=== PATIENT | female | born 2000 ===

== ENCOUNTER → 2023-06-21 11:00 | Outpatient (REF) | payer OTHER, SELFPAY ==
[2023-06-21 16:12] LABS: Mumps Virus IgG Positive; Rubeola (Measles) IgG Positive; Varicella Zoster IgG (VZV) Positive
[2023-06-21 19:41] LABS: Rubella Low Positive
[2023-06-21 21:17] LABS: Hepatitis B Surface Antibody Negative
[2023-06-23 07:55] LABS: Quantiferon Mitogen minus NIL 7.58 IU/mL; Quantiferon NIL 0.04 IU/mL; Quantiferon Plus TB2 minus NIL 0.01 IU/mL (0.00-0.34); Quantiferon TB Gold Plus Negative (Negative)
== END ==
LOC: OHS 11:00
PROVIDERS: ATTENDING PHYSICIAN Nurse Practitioner Family
DX: Z23 Encounter for immunization (principal)
CPT/HCPCS: 36415; 86480; 86706; 86735; 86762; 86765; 86787